=== PATIENT | female | born 1960 | race Caucasian/White ===

== ENCOUNTER 2016-07-01 15:40 | Emergency (ER) | payer OTHER | END 2016-07-01 18:30 | disposition home or self-care (01) | LOC: FER 15:40 | DX: S60.211A Contusion of right wrist, initial encounter (principal); F17.210 Nicotine dependence, cigarettes, uncomplicated; W22.01XA Walked into wall, initial encounter; Y92.69 Other specified industrial and construction area as the place of occurrence of the external cause; Y99.0 Civilian activity done for income or pay | CPT/HCPCS: 36415; 73110; 99283 ==

== ENCOUNTER → 2020-07-17 | Day surgery (SDC) | payer OTHER ==
[~2020-07-17] VITALS: Ht 165.1 cm; Wt 58.5 kg
[~2020-07-17] MED LIST: FOLIC ACID1 MG PO; GARLIC1000 MG PO; MAG-OXIDE 400M400 MG PO; MILK THISTLE175 M1 PO; POTASSIUM PO; VISTARIL25 MG PO; VITAMIN A PO; VITAMIN B6100 MG/2.5 PO; VITAMIN D310 MC4 PO; VITAMIN E100 UNI3 PO
[2020-07-17 09:16] LABS: HCT 31.3 % (37.0-47.0); HGB 10.9 g/dl (12.5-16.0); MCH 34.2 pg (25.0-31.0); MCHC 34.8 g/dL (32.0-36.0); MCV 98.1 fL (78.0-100.0); MPV 12.2 fL (6.0-9.5); RBC 3.19 M/uL (4.20-5.40); RDW 16.9 % (11.5-14.0); WBC 2.7 K/uL (4.0-10.5)
[2020-07-17 09:30] LABS: ALBUMIN 3.2 g/dL (3.4-5.0); BILIRUBIN - TOTAL 1.7 mg/dL (0.2-1.0); BUN/CREAT RATIO (CALC) 13.9 RATIO; CREATININE 0.72 mg/dL (0.51-0.95); GLOBULIN (CALCULATION) 4.7 g/dL; TOTAL PROTEIN 7.9 g/dL (6.4-8.2)
== END | disposition home or self-care (01) ==
LOC: FAS 08:33
PROVIDERS: Surgery
DX: D61.818 Other pancytopenia (principal); D70.9 Neutropenia, unspecified; I10 Essential (primary) hypertension; E78.00 Pure hypercholesterolemia, unspecified; F41.9 Anxiety disorder, unspecified; F17.210 Nicotine dependence, cigarettes, uncomplicated; Z20.822 Contact with and (suspected) exposure to COVID-19; Z88.0 Allergy status to penicillin; Z96.649 Presence of unspecified artificial hip joint; Z83.3 Family history of diabetes mellitus; Z82.49 Family history of ischemic heart disease and other diseases of the circulatory system
CPT/HCPCS: 36415; 80053; 99283; J1644; J2704; J7120

== ENCOUNTER → 2020-08-11 | Day surgery (SDC) | payer OTHER ==
[~2020-08-11] VITALS: Ht 165.1 cm; Wt 58.5 kg
[2020-08-11 10:34] LABS: HCT 31.6 % (37.0-47.0); HGB 10.7 g/dl (12.5-16.0); MCH 31.6 pg (25.0-31.0); MCHC 33.9 g/dL (32.0-36.0); MCV 93.2 fL (78.0-100.0); MPV 11.9 fL (6.0-9.5); RBC 3.39 M/uL (4.20-5.40)
[2020-08-11 10:50] LABS: ALBUMIN 3.2 g/dL (3.4-5.0); BILIRUBIN - TOTAL 1.1 mg/dL (0.2-1.0); BUN/CREAT RATIO (CALC) 14.9 RATIO; CREATININE 0.67 mg/dL (0.51-0.95); GLOBULIN (CALCULATION) 4.6 g/dL; POTASSIUM 3.7 mmol/L (3.5-5.1); TOTAL PROTEIN 7.8 g/dL (6.4-8.2)
== END | disposition home or self-care (01) ==
LOC: FAS 09:55
PROVIDERS: Surgery
DX: K22.2 Esophageal obstruction (principal); K21.00 Gastro-esophageal reflux disease with esophagitis, without bleeding; K29.50 Unspecified chronic gastritis without bleeding; K58.9 Irritable bowel syndrome, unspecified; D59.9 Acquired hemolytic anemia, unspecified; I10 Essential (primary) hypertension; E78.00 Pure hypercholesterolemia, unspecified; E78.70 Disorder of bile acid and cholesterol metabolism, unspecified; F41.9 Anxiety disorder, unspecified; F17.210 Nicotine dependence, cigarettes, uncomplicated; Z20.822 Contact with and (suspected) exposure to COVID-19; Z96.642 Presence of left artificial hip joint; Z79.899 Other long term (current) drug therapy; Z88.0 Allergy status to penicillin; Z82.49 Family history of ischemic heart disease and other diseases of the circulatory system
CPT/HCPCS: 36415; 80053; C1726; J1610; J2704; J7120